=== PATIENT | female | born 1975 | race Two or more races ===

== ENCOUNTER → 2019-08-01 | Emergency (ER) | payer SELFPAY ==
[~2019-08-01] VITALS: Ht 149.9 cm; Wt 68.0 kg
[~2019-08-01] MED LIST: HYDROmorphone HCL 2 MG/ML VL IV ONE; KETOROLAC TROMETH 15 mg/ml 1ML VL IV ONE; ONDANSETRON HCL 4 MG/2 ML VIAL IV ONE; PIPERACILLIN-TAZOB 3.375GM 100 ML IV ONE; SODIUM CHLORIDE 0.9% 1,000 ML IV ONE
[2019-08-01 11:47] LABS: Basophils # (auto) 0 10 ^3/uL (0-0.2); Basophils % (auto) 0.3 % (0.0-2.0); Eosinophils # (auto) 0 10 ^3/uL (0-0.8); Hematocrit 26.7 % (36.0-46.0); Hemoglobin 7.5 g/dL (12.2-16.2); Lymphocytes # (auto) 1.4 10 ^3/uL (0.4-5.4); Mean Corpuscular Hemoglobin 17.2 pg (28.0-32.0); Neutrophils # (auto) 13.2 10 ^3/uL (1.6-8.6); Neutrophils % (auto) 86.6 % (37.0-80.0)
[2019-08-01 11:49] LABS: Eosinophils % (auto) 0.3 % (0.0-7.0); Lymphocytes % (auto) 9.4 % (10.0-50.0); Mean Corpuscular Hgb Conc. 28.1 g/dL (32.0-36.0); Mean Corpuscular Volume 61.3 fL (80.0-100.0); Monocytes # (auto) 0.5 10 ^3/uL (0-1.3); Monocytes % (auto) 3.4 % (0.0-12.0); Platelet Count (auto) 474 10^3/uL (140-450); Red Blood Cells 4.36 10^6/uL (4.0-5.20); White Blood Cell 15.3 10^3/uL (4.4-10.8)
[2019-08-01 11:57] LABS: Red Cell Distribution Width 20.6 % (11.8-14.3)
[2019-08-01 12:06] LABS: Albumin 3.2 g/dL (3.4-5.0); Anion Gap 13 (5-15); Blood Urea Nitrogen 10 mg/dL (7-18); Carbon Dioxide 17 mmol/L (21-32); Chloride 108 mmol/L (98-107); Glucose 157 mg/dL (74-106); Potassium 3.8 mmol/L (3.5-5.1); Sodium 138 mmol/L (136-145)
[2019-08-01 12:12] LABS: Alanine Aminotransferase 11 U/L (13-56); Alkaline Phosphatase 72 U/L (45-117); Aspartate Aminotransferase 15 U/L (15-37); Bilirubin, Total 0.3 mg/dL (0.2-1.0); GFR African American 104 mL/min; GFR Non-African American 86 mL/min; Total Protein 7.3 g/dL (6.4-8.2)
[2019-08-01 16:11] VITALS: BP 127/80
[2019-08-01 16:11] LABS: Urine Bacteria NONE SEEN /hpf (None Seen); Urine Blood 3+ /uL (Negative); Urine Specific Gravity 1.026 (1.001-1.035); Urine WBC <1 /hpf (0 - 5)
== END | disposition home or self-care (01) ==
LOC: EDBD 10:47 → ER 10:47
DX: R10.84 Generalized abdominal pain (principal); C56.1 Malignant neoplasm of right ovary; R18.0 Malignant ascites
CPT/HCPCS: 36415; 74176; 80053; 81001; 84484; 85025; 86304; 96374; 96375; 99285; J1170; J2405; J2543; J7030